=== PATIENT | male | born 1960 | race Caucasian/White ===

== ENCOUNTER 2019-05-18 06:13 | Day surgery (SDC) | payer OTHER, SELFPAY ==
[2019-05-18] VITALS (8 sets, daily range): BP systolic 125–133; BP diastolic 67–91; PULSE 61–71; RESP 11–20; TEMP 35.7–36.6; O2SAT 92–97; BMI 37.7
[2019-05-18] MEDS: LACTATED RINGERS 1,000 ML 42 ML IV (07:35)
[2019-05-18] MEDS: FAMOTIDINE 20 MG/50 ML PIGGYBACK 200 MG IV (07:40)
--- NOTE | 2019-05-18 07:46 | PM.PREOP ---
Pre-operative Note Interval Note History & Physical reviewed/Exam performed by Physician: Yes Changes to H&P: No H&P completed within 30 days and has changed as indicated here:: There are no changes to the history and physical examination scanned on file.
[2019-05-18] MEDS: CEFAZOLIN 2 GM/100 ML FROZ.PIGGY IV (07:50)
--- NOTE | 2019-05-18 08:01 | SUR.OPER ---
Pt. on ESWL table, supine, pillow under head and knees, gel pad under heals and arms
--- NOTE | 2019-05-18 08:48 | SUR.OPER ---
)[phone] TO [phone] THE SHOCK WAVE WAS IN USE PER REP
--- NOTE | 2019-05-18 09:04 | P.OP_ITS ---
Operative Date/Time/Diagnoses Date of procedure: 05/18/19 Time of procedure: 09:04 Pre-op diagnosis: 1. Left renal calculi. 2. Retained left ureteral stent. Post-op diagnosis: same Procedure & Clinicians Procedure: 1. Left extracorporeal shockwave lithotripsy (maximal power level 8.0 x 3000 shocks). 2. Cystoscopy and left ureteral stent removal. Same procedure as scheduled: Yes Indications: 1. Left renal calculi. 2. Retained left ureteral stent. Surgeon: Francisco J Barrett Click Yes if Unassisted: Yes Anesthesia Type: General Operative Notes Findings: Multiple left mid and lower pole renal calculi. Intact retained left ureteral stent. Closure Type: not applicable Specimen(s): none sent Estimated Blood Loss (mL): 0 Blood products transfused: none Tourniquet time (min): 0 Procedure in detail: The patient was positioned supine and was administered general anesthesia. The above-described stones were localized in the X, Y, and Z planes. Lithotripsy was then commenced at minimal power level for a total of 200 shocks. A 2 minutes pause was then conducted. Lithotripsy was then cut restarted in the above-described stones were localized on numerous occasions throughout the treatment with 3 localization as necessary. Total of 3000 shocks were delivered. The patient was then repositioned in its semi lithotomy in the lower abdomen genitalia and groin were prepped and draped in sterile fashion. A 22 [place] panendoscope was then passed into the lower urinary tract with and using foreign body grasper the left ureteral stent was removed without incident. The patient was then repositioned in supine. He was then awakened, transferred to a gurney and transported to recovery in stable condition. Complications: none Post-operative Condition: stable Disposition: PACU Plan for aftercare: Discharge home. schedule appointment with Dr. Barrett in 6 weeks.
[2019-05-18] MEDS: FUROSEMIDE 40 MG/4 ML VIAL 20 MG IV (09:11)
--- NOTE | 2019-05-18 10:04 | SUR.PHASEII ---
Patient noted to have 475 gandhi red urine with some small clots. Urine strained and no fragments noted. Dr. Barrett updated, no new orders received. Patient and instructed on how to strain urine at home and to send sample to physician's office. Also given supplies to do this. Vital signs stable. All instructions gone over in detail with and patient.
== END 2019-05-18 10:10 | disposition home or self-care (01) ==
PROVIDERS: Referring Provider Specialist; Visit Provider Specialist
PROC: (CPT 50590; principal; 2019-05-18 07:45)
DX: N20.0 Calculus of kidney (principal); Z46.6 Encounter for fitting and adjustment of urinary device
CPT/HCPCS: 50590; J0690; J1940; J3010

== ENCOUNTER 2021-08-03 10:39 | Emergency (ER) | payer OTHER, SELFPAY ==
[2021-08-03 11:10] VITALS: BP 179/114; PULSE 61; RESP 16; TEMP 36.3; O2SAT 94; BMI 39.4
[2021-08-03] MEDS: ONDANSETRON 4 MG/2 ML INJ IV (11:28)
[2021-08-03] MEDS: SODIUM CHLORIDE 0.9% 1,000 ML 1000 ML IV (11:28)
--- NOTE | 2021-08-03 11:29 | DI.CT.S_ITS ---
PROCEDURE: CT KIDNEY URETER BLADDER (KUB) INDICATIONS: possible LEFT kidney stone TECHNIQUE: Axial sections were acquired from the lung bases to the pubic symphysis. Coronal and sagittal reformats were performed. For radiation dose reduction, the following was used: automated exposure control, adjustment of mA and/or kV according to patient size. COMPARISON: [facility], CT, CT KUB, 04/06/2019, 7:48. FINDINGS: Image quality: Excellent. Lung bases: Unremarkable. Heart: No significant findings. URINARY: Right Kidney: There is an unchanged 5 mm superior right renal pole calcification, Hounsfield units 792. Punctate inferior pole calcification is present. No obstruction. Right Ureter: No hydroureter. Left Kidney: There are 3 punctate calcifications within the superior renal pole, new compared to prior exam. Ureterovesicular stent has been removed. There are 2 inferior pole renal calcifications measuring 6 mm and 8 mm, Hounsfield units 303 and 388 respectively. There is moderate hydronephrosis. Perinephric stranding is present. Left Ureter: 8 mm proximal left ureteral calculus, Hounsfield units 469. There is mild to moderate proximal hydroureter. Bladder: Normal wall thickness. No stones. ABDOMEN: Liver: Liver is enlarged measuring 21.9 cm with steatosis. Gallbladder: Unremarkable. Biliary ducts: Unremarkable. Pancreas: Unremarkable. Spleen: Unremarkable. Adrenal Glands: Unchanged right adrenal nodule. Stomach and Bowel: Stomach, small bowel loops, and colon are unremarkable. Colonic diverticular present. Peritoneum: No abnormal intraperitoneal fluid. No free air. Ventral Wall: No hernia. Abdominal Nodes: No enlarged retroperitoneal or mesenteric lymph nodes. Vessels: Aorta and inferior vena cava are normal in size. PELVIS: Pelvic Organs: Unremarkable. Pelvic Nodes: Unremarkable. Miscellaneous: Fat containing inguinal hernias are present. Bones: Unremarkable. IMPRESSION: Proximal left ureteral calculus with mild to moderate hydronephrosis and hydroureter. Diverticulosis. Nonobstructing right renal an additional nonobstructing left renal calculi. Dictated by: Nia Jones M.D. on 08/03/2021 at 13:44 Approved by: Nia Jones M.D. on 08/03/2021 at 13:50
[2021-08-03] MEDS: KETOROLAC 30 MG/ML VIAL 15 MG IV (11:33)
[2021-08-03 11:35] LABS: Add Manual Diff / Slide Review NO; Basophils Absolute Auto 100 /uL (0-100); Basophils Percent Auto 0.4 % (0-2); Eosinophils Absolute Auto 0 /uL (0-450); Eosinophils Percent Auto 0.3 % (2-4); Hematocrit 43.1 % (41-53); Hemoglobin 14.8 g/dL (13.5-17.5); Lymphocytes Absolute Auto 1700 /uL (1100-4500); Lymphocytes Percent Auto 11.6 % (25-40); Mean Corpuscular HGB Conc 34.3 % (30-36); Mean Corpuscular Hemoglobin 28.1 PG (26-34); Mean Corpuscular Volume 81.9 fL (80-100); Monocytes Absolute Auto 900 /uL (0-900); Monocytes Percent Auto 6.3 % (3-14); Neutrophils Absolute Auto 11700 /uL (1500-7000); Neutrophils Percent Auto 81.4 % (50-75); Platelet Count 300 X10^3/uL (150-400); Red Blood Cell Count 5.25 X10^6/uL (4.5-5.9); Red Cell Distribution Width 13.6 % (11.6-14.8); White Blood Cell Count 14.4 X10^3/uL (4.5-11.0)
[2021-08-03 11:43] LABS: INR 1.2 (0.9-1.3)
[2021-08-03 11:49] LABS: Alanine Aminotransferase 22 IU/L (<50); Albumin 4.4 g/dL (3.5-5.0); Albumin Globulin Ratio 1.4 (1.0-2.8); Alkaline Phosphatase 113 U/L (38-126); Aspartate Aminotransferase 19 IU/L (17-59); BUN Creatinine Ratio 15.9 (6-22); Bilirubin Total 0.6 mg/dL (0.2-1.3); Blood Urea Nitrogen 24 mg/dL (9-20); Calcium 9.3 mg/dL (8.4-10.2); Carbon Dioxide 28 mmol/L (22-32); Chloride 101 mmol/L (98-107); Estimated Glomerular Filt Rate 52 mL/min (>60); Globulin 3.1 g/dL (1.7-4.1); Glucose 244 mg/dL (80-110); HEMOLYSIS < 15 (0-50); Potassium 4.6 mmol/L (3.4-5.1); Sodium 137 mmol/L (137-145); Total Protein 7.5 g/dL (6.3-8.2)
[2021-08-03 12:28] VITALS: BP 128/67; PULSE 55; O2SAT 95
[2021-08-03 12:40] LABS: Appearance Urine UA CLEAR; Bilirubin Urine UA NEGATIVE (NEGATIVE); Color Urine UA YELLOW; Glucose Urine UA 1+ g/dL (Negative); Ketones Urine UA 1+ (NEGATIVE); Leukocyte Esterase Urine UA NEGATIVE (NEGATIVE); Nitrite Urine UA NEGATIVE (Negative); Occult Blood Urine UA 1+ (Negative); Protein Urine UA NEGATIVE (Negative); Specific Gravity Urine UA 1.025 (1.000-1.035); Urobilinogen Urine UA 0.2 E.U./dL (0.2)
[2021-08-03 12:43] LABS: Bacteria Urine None Seen; Culture Indicated Urine Cult Not Indicated; Mucus Urine 1+ (Negative); RBC Urine 1-5/HPF (0-5/HPF); Squamous Epithelial Cell Urine 1-5 /HPF (0-5/HPF); WBC Urine 0-1/HPF (0-5/HPF)
--- NOTE | 2021-08-03 13:38 | ED_ITS ---
HPI - Back Pain/Injury General Chief Complaint: Back Pain/Injury Stated Complaint: kidney stone again Time Seen by Provider: 08/03/21 12:57 History of Present Illness HPI Narrative: Patient is a 61-year-old male history of diabetes, kidney stones presenting today of left flank pain. He has is been off and on for the last 2 days. Feels like his previous kidney stones. He has been nauseous with vomiting unable to keep anything down. He gets sweaty but not sure that he has a fever. No chills. No chest pain shortness of breath or other symptoms. He previously has had stents and lithotripsy. He also developed infection after a stent in [place]. Related Data Home Medications Medication Instructions Recorded Confirmed tamsulosin 0.4 mg capsule 0.4 mg PO DAILY 05/15/19 05/18/19 insulin NPH isoph U-100 human 100 25 unit SUBCUT BID 05/18/19 05/18/19 unit/mL (3 mL) subcutaneous pen (Novolin N Flexpen) metformin 500 mg tablet,extended 500 mg PO BID 05/18/19 05/18/19 release 24 hr Previous Rx's Medication Instructions Recorded oxycodone 5 mg capsule 5 mg PO Q4H PRN #14 cap 05/18/19 hydrocodone 5 mg-acetaminophen 325 1 tab PO Q6H PRN #10 tab 08/03/21 mg tablet ondansetron 4 mg disintegrating 4 mg PO Q8H PRN #10 tab 08/03/21 tablet Allergies Allergy/AdvReac Type Severity Reaction Status Date / Time No Known Drug Allergies Allergy Verified 05/18/19 06:49 Review of Systems Review of Systems Narrative: GENERAL: Denies chills, fatigue, malaise, fever, sweats, travel HEENT: Denies sinus pain, ear pain, sore throat, difficulty swallowing, neck pain RESPIRATORY: Denies dyspnea, cough, wheezing, hemoptysis, sputum. CARDIOVASCULAR: Denies chest pain, palpitations, orthopnea, edema GASTROINTESTINAL: Denies nausea, vomiting, abdominal pain, diarrhea, constipation, melena. : See HPI MUSCULOSKELETAL: Denies weakness, joint pain, or bony pain SKIN: No rash, no erythema, no pruritus NEUROLOGIC: Denies weakness, dizziness, headache, numbness, change in speech, confusion PSYCHIATRIC: No concerning psychosocial issues. 12 point review of systems is negative except for those stated above and HPI Patient History Medical History Diabetes Enlarged prostate with lower urinary tract symptoms (LUTS) Renal calculus, left Umbilical hernia Urinary calculi Social History household members: spouse Smoking Status: Never smoker alcohol intake: current Smoking Status: Never smoker alcohol intake frequency: a few times a month Substance Use Type: does not use Exam Initial Vital Signs Initial Vital Signs: Vital Signs Temperature 97.3 F L 08/03/21 11:10 Pulse Rate 61 08/03/21 11:10 Respiratory Rate 16 08/03/21 11:10 Blood Pressure 179/114 H 08/03/21 11:10 Pulse Oximetry 94 08/03/21 11:10 GENERAL: Well-appearing 61-year-old male and in no acute distress. HEENT: Head atraumatic,EOMI, pupils reactive, face symmetric, moist mucous membranes CARDIOVASCULAR: Regular rate and rhythm without murmurs, rubs or gallops. RESPIRATORY: Breath sounds equal bilaterally, no wheezes rales or rhonchi. ABDOMEN: Soft, nontender. Normoactive bowel sounds all 4 quadrants. No guarding or rebound. : Left CVA tenderness EXTREMITIES: Normal range of motion, no clubbing or edema. Neurovascularly intact NEUROLOGICAL: Alert and oriented x4.Normal gait and speech. SKIN: Warm, dry, no laceration, no petechiae, no rashes or lesions. Course Orders Ordered: ED Orders 08/03/21 11:21 Complete Blood Count AUTO DIFF Stat Comprehensive Metabolic Panel Stat Prothrombin Time INR Stat 08/03/21 11:29 CT kidney ureter bladder (KUB) Stat 08/03/21 12:30 Urinalysis and Microscopic Stat Discontinued Medications Sodium Chloride (Normal Saline 0.9%) 1,000 mls @ 1,000 mls/hr IV BOLUS ONE Stop: 08/03/21 12:13 Last Infusion: 08/03/21 12:24 Dose: 0 mls/hr Documented by: Admin: 08/03/21 11:28 Dose: 1,000 mls/hr Documented by: IMAN Ketorolac Tromethamine (Ketorolac 30 Mg/Ml Vial) 15 mg IV NOW ONE Stop: 08/03/21 11:31 Last Admin: 08/03/21 11:33 Dose: 15 mg Documented by: IMAN Ondansetron HCl (Ondansetron 4 Mg/2 Ml Inj) 4 mg IV NOW ONE Stop: 08/03/21 11:15 Last Admin: 08/03/21 11:28 Dose: 4 mg Documented by: IMAN Vital Signs Vital signs: Vital Signs - 8 hr 08/03/21 12:28 08/03/21 14:24 Pulse Rate 55 L Blood Pressure 128/67 Pulse Oximetry 95 99 MDM - Back Pain/Injury Lab Data Result diagrams: 08/03/21 11:21 08/03/21 11:21 Labs: Lab Results 08/03/21 08/03/21 08/03/21 Range/Units 11:21 11:21 11:21 WBC 14.4 H (4.5-11.0) X10^3/uL RBC 5.25 (4.5-5.9) X10^6/uL Hgb 14.8 (13.5-17.5) g/dL Hct 43.1 (41-53) % MCV 81.9 (80-100) fL MCH 28.1 (26-34) PG MCHC 34.3 (30-36) % RDW 13.6 (11.6-14.8) % Plt Count 300 (150-400) X10^3/uL Neut % (Auto) 81.4 H (50-75) % Lymph % (Auto) 11.6 L (25-40) % [place] % (Auto) 6.3 (3-14) % Eos % (Auto) 0.3 L (2-4) % Baso % (Auto) 0.4 (0-2) % Neut # (Auto) 14725 H (0419-6696) /uL Lymph # (Auto) 1700 (0728-7429) /uL [place] # (Auto) 900 (0-900) /uL Eos # (Auto) 0 (0-450) /uL Baso # (Auto) 100 (0-100) /uL PT 13.0 H (10.1-12.7) SECONDS INR 1.2 (0.9-1.3) Sodium 137 (137-145) mmol/L Potassium 4.6 (3.4-5.1) mmol/L Chloride 101 (98-107) mmol/L Carbon Dioxide 28 (22-32) mmol/L BUN 24 H (9-20) mg/dL Creatinine 1.51 H (0.66-1.25) mg/dL Estimated GFR 52 L (>60) mL/min BUN/Creatinine Ratio 15.9 (6-22) Glucose 244 H (80-110) mg/dL Calcium 9.3 (8.4-10.2) mg/dL Total Bilirubin 0.6 (0.2-1.3) mg/dL AST 19 (17-59) IU/L ALT 22 (<50) IU/L Alkaline Phosphatase 113 (38-126) U/L Total Protein 7.5 (6.3-8.2) g/dL Albumin 4.4 (3.5-5.0) g/dL Globulin 3.1 (1.7-4.1) g/dL Albumin/Globulin Ratio 1.4 (1.0-2.8) Urine Color Urine Appearance Urine pH (4.5-8.0) Ur Specific [place] (1.000-1.035) Urine Protein (Negative) Urine Glucose (UA) (Negative) g/dL Urine Ketones (NEGATIVE) Urine Occult Blood (Negative) Urine Nitrate (Negative) Urine Bilirubin (NEGATIVE) Urine Urobilinogen (0.2) E.U./dL Ur Leukocyte Esterase (NEGATIVE) Urine RBC (0-5/HPF) Urine WBC (0-5/HPF) Ur Squamous Epith Cells (0-5/HPF) Urine Bacteria (None) Urine Mucus (Negative) Ur Culture Indicated? 08/03/21 Range/Units 12:30 WBC (4.5-11.0) X10^3/uL RBC (4.5-5.9) X10^6/uL Hgb (13.5-17.5) g/dL Hct (41-53) % MCV (80-100) fL MCH (26-34) PG MCHC (30-36) % RDW (11.6-14.8) % Plt Count (150-400) X10^3/uL Neut % (Auto) (50-75) % Lymph % (Auto) (25-40) % [place] % (Auto) (3-14) % Eos % (Auto) (2-4) % Baso % (Auto) (0-2) % Neut # (Auto) (4809-4533) /uL Lymph # (Auto) (6346-2251) /uL [place] # (Auto) (0-900) /uL Eos # (Auto) (0-450) /uL Baso # (Auto) (0-100) /uL PT (10.1-12.7) SECONDS INR (0.9-1.3) Sodium (137-145) mmol/L Potassium (3.4-5.1) mmol/L Chloride (98-107) mmol/L Carbon Dioxide (22-32) mmol/L BUN (9-20) mg/dL Creatinine (0.66-1.25) mg/dL Estimated GFR (>60) mL/min BUN/Creatinine Ratio (6-22) Glucose (80-110) mg/dL Calcium (8.4-10.2) mg/dL Total Bilirubin (0.2-1.3) mg/dL AST (17-59) IU/L ALT (<50) IU/L Alkaline Phosphatase (38-126) U/L Total Protein (6.3-8.2) g/dL Albumin (3.5-5.0) g/dL Globulin (1.7-4.1) g/dL Albumin/Globulin Ratio (1.0-2.8) Urine Color Yellow Urine Appearance Clear Urine pH 5.0 (4.5-8.0) Ur Specific [place] 1.025 (1.000-1.035) Urine Protein Negative (Negative) Urine Glucose (UA) 1+ H (Negative) g/dL Urine Ketones 1+ H (NEGATIVE) Urine Occult Blood 1+ H (Negative) Urine Nitrate Negative (Negative) Urine Bilirubin Negative (NEGATIVE) Urine Urobilinogen 0.2 (0.2) E.U./dL Ur Leukocyte Esterase Negative (NEGATIVE) Urine RBC 1-5/hpf (0-5/HPF) Urine WBC 0-1/hpf (0-5/HPF) Ur Squamous Epith Cells 1-5 /hpf (0-5/HPF) Urine Bacteria None seen (None) Urine Mucus 1+ H (Negative) Ur Culture Indicated? Cult not indicated Imaging Data CT scan - abdomen/pelvis: Radiologist's Impression: Terrance Hinkle MR#: [id number] : 1960 Acct:[id number] Age/Sex: 61 / M Date of Service: 08/03/21 Loc: ED Accession Number: [id number] ?? Procedure: CT kidney ureter bladder (KUB) Ordering Provider: Renae Redding D.O. PROCEDURE:? CT KIDNEY URETER BLADDER (KUB) ? INDICATIONS:? possible LEFT kidney stone ? TECHNIQUE:? Axial sections were acquired from the lung bases to the pubic symphysis.? Coronal and sagittal reformats were performed.? For radiation dose reduction, the following was used: ?automated exposure control, adjustment of mA and/or kV according to patient size.? ? COMPARISON:? [facility], CT, CT KUB, 04/06/2019, 7:48. ? FINDINGS:? Image quality:? Excellent.? ? Lung bases:? Unremarkable.? ? Heart:? No significant findings. ? URINARY: Right Kidney:? There is an unchanged 5 mm superior right renal pole calcification, Hounsfield units 792. Punctate inferior pole calcification is present.? No obstruction.? Right Ureter:? No hydroureter.? ? Left Kidney:? There are 3 punctate calcifications within the superior renal pole, new compared to prior exam.? Ureterovesicular stent has been removed.? There are 2 inferior pole renal calcifications measuring 6 mm and 8 mm, Hounsfield units 303 and 388 respectively.? There is moderate hydronephrosis.? Perinephric stranding is present. Left Ureter:? 8 mm proximal left ureteral calculus, Hounsfield units 469.? There is mild to moderate proximal hydroureter.? ? Bladder:? Normal wall thickness. No stones. ? ? ? ABDOMEN: Liver:? Liver is enlarged measuring 21.9 cm with steatosis. Gallbladder:? Unremarkable.? ? Biliary ducts:? Unremarkable.? ? Pancreas:? Unremarkable.? ? Spleen:? Unremarkable.? ? Adrenal Glands:? Unchanged right adrenal nodule. ? Stomach and Bowel:? Stomach, small bowel loops, and colon are unremarkable.? Colonic diverticular present. Peritoneum:? No abnormal intraperitoneal fluid.? No free air.? ? Ventral Wall: ? No hernia.? Abdominal Nodes:? No enlarged retroperitoneal or mesenteric lymph nodes.? Vessels:? Aorta and inferior vena cava are normal in size.? ? PELVIS: Pelvic Organs:? Unremarkable.? ? Pelvic Nodes: Unremarkable. Miscellaneous:? Fat containing inguinal hernias are present. ? ? ? Bones:? Unremarkable. ? IMPRESSION:? ? Proximal left ureteral calculus with mild to moderate hydronephrosis and hydroureter. ? Diverticulosis. ? Nonobstructing right renal an additional nonobstructing left renal calculi. ? ? Dictated by: Nia Jones M.D. on 08/03/2021 at 13:44 ? ? MDM Narrative Medical decision making narrative: Patient has history of kidney stones presents like previous kidney stones. Having some left-sided flank pain ongoing for last 2 days. He has previously needed stents and lithotripsy. Today CT confirms 8 mm left ureteral calculus with out infection. He also is found to have multiple other renal stones. He is feeling much better after Toradol. He has previously seen Dr. Barrett. Recommend outpatient follow-up. Dr. Barrett updated on patient's symptoms test results happy to see patient in clinic. Discharge Plan Departure Patient Disposition: Home Clinical Impression: Kidney stone Instructions: DI for Kidney Stones Activity Restrictions/Additional Instructions: *You have been diagnosed with kidney stone *What to do: I recommend you call and follow up with Dr. Barrett. Your stone is 8 mm, will likely require stent and treatment. *Continue to take medications as directed [place] 1 tablet every 6 hours if needed for severe pain Ibuprofen 600 mg every 6 hours if needed for ggok-dr-dokhralj pain Flomax 0.4 mg daily Zofran 4 mg every 8 hours if needed for nausea or vomiting *Follow up with your primary care provider in 2-3 days or call [phone] *Return to ER if you should have increasing pain fever persistent vomiting or any new, worsening or concerning symptoms CONTROLLED SUBSTANCE DISCHARGE (Narcotoic/benzodiazepine/Flexeril/Phenergan) 1. You have been prescribed narcotic medications, it does have acetaminophen/Tylenol/paracetamol in it, DO NOT TAKE MORE THAN 4,00mg in 24 hours of Tylenol. TRAMADOL DOES NOT CONTAIN TYLENOL 2. Please understand that we cannot provide further refills of narcotics, benzodiazepines or controlled substances through the ED and her pain management will need to be through your provider. 3. While on these medications you cannot drive or operate heavy machinery. 4. You cannot sign legal documents or perform any duties such as this. 5. As long as you're taking opiate pain medications he should also be taking a stool softener such as Colace, Dulcolax, MiraLAX or prune juice, to help avoid constipation. Prescriptions: New hydrocodone-acetaminophen 5-325 mg tablet 1 tab PO Q6H PRN (Reason: pain) Qty: 10 0RF ondansetron 4 mg tablet,disintegrating 4 mg PO Q8H PRN (Reason: nausea and vomiting) Qty: 10 0RF No Action tamsulosin 0.4 mg Capsule 0.4 mg PO DAILY 0RF metformin 500 mg Tablet Extended Release 24 Hr 500 mg PO BID 0RF Novolin N Flexpen 100 unit/mL (3 mL) Insulin Pen 25 unit SUBCUT BID 0RF oxycodone 5 mg capsule 5 mg PO Q4H PRN (Reason: pain) Qty: 14 0RF Referrals: Francisco J Barrett MD [Physician] - Janee Diggs PA-C [Primary Care Provider] -
[2021-08-03 14:24] VITALS: O2SAT 99
== END 2021-08-03 14:20 | disposition home or self-care (01) ==
PROVIDERS: Emergency Provider Emergency Medicine; PCP Physician Assistant
DX: N20.0 Calculus of kidney (principal); R11.2 Nausea with vomiting, unspecified; Z87.442 Personal history of urinary calculi
CPT/HCPCS: 36415; 74176; 80053; 81001; 85025; 85610; 96361; 96374; 96375; 99284; J1885; J2405

== ENCOUNTER → 2021-08-05 07:05 | Outpatient (CLI) | payer OTHER, SELFPAY ==
--- NOTE | 2021-08-05 07:08 | DI.RAD.S_ITS ---
PROCEDURE: XR KUB INDICATIONS: Kidney stone TECHNIQUE: One view of the abdomen acquired. COMPARISON: None. FINDINGS: Surgical changes and devices: None. Bowel: Bowel gas pattern is normal. Soft tissues: 5 mm calcification projects over the upper pole right kidney region. Collection of left lower pole calcifications is not well seen. There is a questionable 9 mm calcification projecting to the left of midline at the level of the L2-3 disc, similar location to the left ureteral stone seen on CT. No suspicious pelvic calcifications. Phleboliths are present. Bones: No suspicious bony lesions. IMPRESSION: 1. Questionable 9 mm calcification projecting to the left of midline at the similar location as seen on the prior CT scan. Persistent left ureteral stone is suspected. Consider CT KUB for confirmation. Dictated by: Kristi Chahal M.D. on 08/05/2021 at 8:51 Approved by: Kristi Chahal M.D. on 08/05/2021 at 9:00
[2021-08-05 08:47] LABS: Prostate Specific Antigen 0.382 ng/mL (0.10-4.00)
== END ==
PROVIDERS: PCP Physician Assistant; Referring Provider Specialist; Visit Provider Specialist
DX: N20.1 Calculus of ureter (principal); R97.20 Elevated prostate specific antigen [PSA]; Z87.442 Personal history of urinary calculi; Z20.822 Contact with and (suspected) exposure to COVID-19
CPT/HCPCS: 36415; 74018; 81002; 84153; 87635; 99215

== ENCOUNTER → 2021-08-05 09:53 | Outpatient (CLI) | payer OTHER, SELFPAY ==
[2021-08-05 10:41] LABS: COVID19 -Nasal RAPID Negative (Negative)
== END ==
PROVIDERS: PCP Physician Assistant; Visit Provider Specialist
DX: Z20.822 Contact with and (suspected) exposure to COVID-19 (principal)
CPT/HCPCS: 87635

== ENCOUNTER 2021-08-07 09:34 | Day surgery (SDC) | payer OTHER, SELFPAY ==
[2021-08-07] VITALS (10 sets, daily range): BP systolic 148–169; BP diastolic 72–116; PULSE 61–96; RESP 10–18; TEMP 36.1–36.6; O2SAT 92–99; BMI 39.4
[2021-08-07] MEDS: LACTATED RINGERS 1,000 ML 42 ML IV ×2 (10:01→13:03)
--- NOTE | 2021-08-07 10:55 | PM.PREOP ---
Pre-operative Note COVID-19 Criteria for continued procedure: Expected advancement of disease process, Possibility delay results in more complex future surgery or treatment, Increased loss of function, Continuing or worsening of significant or severe pain, Deterioration of the patient's condition or overall health, Delay expected to result in less-positive ultimate med/surg outcome and Non-surgical alternatives not available or appropriate per current SOC Interval Note History & Physical reviewed/Exam performed by Physician: Yes Changes to H&P: No
[2021-08-07] MEDS: ONDANSETRON 4 MG/2 ML INJ IV (11:03)
[2021-08-07] MEDS: METOCLOPRAMIDE 10 MG/2 ML INJ IV (11:04)
--- NOTE | 2021-08-07 11:08 | SUR.PREOP ---
Pt nauseated, Dr. Barrett aware, asked for blood sugar to be checked, checked , reported findings to Dr. So, ondansetron and reglan ordered and given.
[2021-08-07] MEDS: CEFAZOLIN VIAL 3 GM in SODIUM CHLORIDE 0.9% 100 ML IV (11:20)
[2021-08-07] MEDS: IOPAMIDOL 50 ML VIAL INJ (11:45)
--- NOTE | 2021-08-07 11:51 | SUR.OPER ---
Lithotomy on padded OR bed, head on pillow, arms secured on padded arm boards at <90 degrees abduction. Legs secured in padded yellow fins stirrups.
--- NOTE | 2021-08-07 13:21 | P.OP_ITS ---
Operative Date/Time/Diagnoses Date of procedure: 08/07/21 Time of procedure: 13:21 Pre-op diagnosis: 1. Obstructing 7 mm left proximal ureteral calculus. 2. Multiple left lower pole calculi. 3. Right nephrolithiasis. 4. History of nephrolithiasis. Post-op diagnosis: same Procedure & Clinicians Procedure: 1. Cystoscopy left/retrograde pyelogram. 2. cystoscopy/left intrarenal ureteroscopic laser lithotripsy. 3. Cystoscopy/placement left ureteral stent (6 Mexican by 22-32 cm multi-length. Same procedure as scheduled: Yes Indications: 1. Obstructing 7 mm left proximal ureteral calculus. 2. Multiple left renal calculi. 3. Right renal calculus. 4. Recurrent nephrolithiasis. Click Yes if Unassisted: Yes Anesthesia Type: General Operative Notes Findings: 1. Urethra-for wide caliber distal bulbar urethral stricture. No lesions or stones. 2. External sphincter- coapted with normal overlying urothelium. 3. 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 4. Bladder-1+ trabeculation. Normal ureteral orifices bilaterally. There were numerous, scattered mark colored crystals line dependently in the vicinity of the bladder base. 5. Left ureter-the index calculus was unchanged in position from preoperative CT scan. His associated with high-grade obstruction and adherence to the surrounding urothelium. 6. Fjhs-[id number]-mdgjhdyg hydro caliectasis. There 6, roughly ovoid to round calculi lying dependently in the inferior pole. Closure Type: not applicable Specimen(s): other (Stone sand from left kidney.) Applied: other (Six Mexican by 22-32 cm multi-length stent.) Estimated Blood Loss (mL): 2 Blood products transfused: none Procedure in detail: Patient was positioned supine was administered general anesthesia. Patient was then repositioned semi lithotomy and lower abdomen, genitalia, groin were then prepped and draped in sterile fashion the 22 Mexican panendoscope was then passed lower urinary tract with the findings as described above is 0.35 hybrid guidewire was then advanced left Boaz system under direct and fluoroscopic guidance. Additional and recovers crystal material effluxed from the left ureteral orifice after advancing the hybrid wire. Next, the pannus was off hybrid guidewire. A dual lumen ureteral access sheath was then advanced over the hybrid guidewire advanced proximally under fluoroscopic guidance to approximately the estimated level of the index calculus obstructing the left ureter. A retrograde pyelogram was then performed through the accessory port of the dual lumen access sheath at this time. Indeed, demonstrating a high-grade obstruction with no passage of contrast beyond the impacted stone. Next, a 2nd hybrid 0.35 guidewire was advanced through the accessory port of the dual lumen access sheath no successfully negotiated beyond the stone in cold within the dilated left collecting system. The dual-lumen ureteral access sheath was then backloaded off both wires. One wire was carefully secured to the operative drape over the other wire a flexible ureteral scope was advanced under fluoroscopic guidance to the level of the index calculus. The guidewire was then removed. The stone was immediately encountered. A 200 micron laser fiber was requested. All operating room personnel and patient were then fitted with laser safety eyewear. The fiber was advanced through the flexible ureteral scope and the stone treatment began. Essentially, the whole central portion of the stone was lasered through and through, leaving a circumferential rim of stone adherent to the underlying urothelium. Next, very careful manipulation of the edges of the stone perimeter was undertaken with the chisel tip of the flexible ureteral scope lens resulting in separation allowing further laser lithotripsy for complete clearance and breakdown of the stone material. The underlying urothelium surprising denuded. Flexible ureteroscope was then advanced into the renal collecting system proper. Retrograde pyelogram was performed at this 0.4 localization guidance. The stones seen in pre operative imaging were located readily within the low dilated lower pole system. Laser lithotripsy was then undertaken. Systematic fragmentation of each stone was undertaken with the exception of 1 of the larger stones. That stone was adherent to the very inferior most and medial most wall of the dilated calyx. Despite multiple manipulative attempts with the positioning of the scope in flexion and deflection with the laser fiber passed through the working channel, the stone could not adequately be accessed for laser treatment. Additionally, the patient was air planed and 1 direction and in the other and attempt to mobilize the stone. The abdomen over the left upper quadrant was then palpated deeply in manipulated movement of the visual field could definitely be seen but the stone was not going to mobilize. Decision was made at that time to and the procedure. A 2nd retrograde pyelogram of the intrarenal collecting system was then performed the calyceal system was then carefully examined superiorly to inferiorly and no additional on treated stones were identified. Of note: Visual field was quite turbid due to suspended stone material and treatment products. Next, the a flexible ureteral scope was gradually withdrawn while visualizing the ureteral lumen throughout its course until the bladder was entered. The 22 Mexican panendoscope was then front loaded on the remaining 0.35 hybrid guidewire a 6 Mexican by 22-32 cm multi-length stent was then selected and advanced over the wire proximally under direct and fluoroscopic guidance. A RETRIEVAL LINE WAS LEFT ATTACHED. The bladder is then drained completely, and all instrumentation was removed. The patient was then repositioned in supine, was awakened, and then was transferred to [facility] for transfer to PACU in stable condition.
[2021-08-07] MEDS: OXYCODONE IR 5 MG TABLET PO (14:23)
[2021-08-07] MEDS: ACETAMINOPHEN 325 MG TABLET 975 MG PO (14:23)
[2021-08-07] MEDS: FUROSEMIDE 40 MG/4 ML VIAL 20 MG IV (14:23)
--- NOTE | 2021-08-07 15:10 | SUR.PHASEII ---
Voiding without difficulty. Denies pain, stable. Strainer, urinal, and container given upon discharge.
[2021-08-12 13:11] LABS: Uric Acid 100 % (.)
== END 2021-08-07 15:22 | disposition home or self-care (01) ==
PROVIDERS: PCP Physician Assistant; Referring Provider Specialist; Visit Provider Specialist
PROC: 0TF78ZZ Fragmentation in Left Ureter, Via Natural or Artificial Opening Endoscopic (ICD-10-PCS; CPT 52353; principal; 2021-08-07 11:00)
DX: N20.2 Calculus of kidney with calculus of ureter (principal); E11.9 Type 2 diabetes mellitus without complications; Z79.4 Long term (current) use of insulin; N40.1 Benign prostatic hyperplasia with lower urinary tract symptoms; Z79.899 Other long term (current) drug therapy
CPT/HCPCS: 52356; 82365; 82962; C1771; J0690; J1940; J2250; J2405; J2704; J2765; J3010

== ENCOUNTER → 2022-09-13 09:38 | Outpatient (CLI) | payer OTHER, SELFPAY ==
[2022-09-13 11:19] LABS: Calcium 9.5 mg/dL (8.4-10.2); Uric Acid 7.3 mg/dL (3.5-8.5)
[2022-09-13 11:50] LABS: Prostate Specific Antigen 0.485 ng/mL (0.10-4.00)
[2022-09-17 13:10] LABS: Calcium 9.8 mg/dL (8.6-10.2); Parathyroid Hormone, Intact 54 pg/mL (15-65)
== END ==
PROVIDERS: PCP Physician Assistant; Referring Provider Specialist; Visit Provider Specialist
DX: N20.0 Calculus of kidney (principal); N20.1 Calculus of ureter
CPT/HCPCS: 36415; 82310; 83970; 84153; 84550